=== PATIENT | female | born 1985 | race African-American/Black ===

== ENCOUNTER 2022-11-17 10:02 | Outpatient (CLI) | payer BC ==
[2022-11-17] MEDS ORDERED: Iopamidol 300 61% 100 ML VIAL FS ONE (14:21)
== END 2022-11-17 10:03 | disposition home or self-care (01) ==
LOC: CSHCT 10:02
PROVIDERS: ATTEND Internal Medicine Gastroenterology
DX: R10.9 Unspecified abdominal pain (principal); R19.7 Diarrhea, unspecified
CPT/HCPCS: 74177